=== PATIENT | female | born 1990 | race Caucasian/White ===

== ENCOUNTER 2018-08-24 09:59 | Day surgery (SDC) | payer MEDICAID, SELFPAY ==
--- NOTE | 2018-08-24 | NASAL_PTH ---
PATIENT: LADARIUS PARRISH LOC: [facility] [place] U#:[id number] AGE/SX: 28/F ROOM: RE08/24/[address]: Dean Moreno MD : 1990 BED: DIS: 08/24/2018 SPEC #: [id number] RECD: 08/24/18 14:31 STATUS: XANDER PATRICIA #: [id number] ALBERTO: 08/24/18 00:[address]: Dean Moreno DEPT: SURGICAL PATHOLOGY RECD BY: Issa Pace ENTERED: 08/24/18 14:31 SP TYPE: NASAL SPEC OTHR DR: Marcia Walters, MOTOR BRAKEMAN-C Tissues: Nasal septum, NOS Procedures: Decalcification bone/plaque Surgery Specimen Level III HEADER OPERATION: Septoplasty, turbinate cautery PRE-OP DIAGNOSIS: Nasal congestion, deviated nasal septum, hypertrophy of nasal turbinate TISSUE SUBMITTED: Nasal septum and cartilage MICROSCOPIC DIAGNOSIS Nasal septum and cartilage, septoplasty: Fragments of hyaline cartilage and bone with reparative and reactive change (clinically deviated septum). AM:tamera 08/30/18 MICROSCOPIC DESCRIPTION Slides are reviewed. GROSS DESCRIPTION Received in fixative is one container labeled with the patient's name and designated nasal septum and cartilage. The specimen consists of multiple fragments of cartilage and bone that in aggregate measure 4 x 3 x 0.8 cm. Health Informatics Advisor tissue is submitted in one cassette after decalcification. / SJ:tamera 08/24/18 TC:5 CPT: 47071, 57118
[2018-08-24 10:32] VITALS: BP 102/62; PULSE 70; RESP 16; TEMP 37; O2SAT 100; BMI 24.3
[2018-08-24 10:35] LABS: Internal QC Validated? YES +Cl - CLEAR BKGD; Pregnancy, Urine Negative Negative
[2018-08-24] MEDS: Mixture 30 ML Bottle TOPICAL (12:02)
[2018-08-24] MEDS: Oxymetazoline 0.05% 1 SPRAY SPRAY.BTL 15 SPRAY (12:10)
[2018-08-24] MEDS: Neomycin/Bacitracin/Polymyxin Ointment 1 APPLIC (12:50)
--- NOTE | 2018-08-24 13:15 | PCM.DC ---
You will use the following diet at home:: No restrictions Discharge Activity: Return to Normal Activity - head of bed elevation. Do not blow nose but spray saline and sniff clear at least 3 times daily and as desired Allergies/Adverse Reactions: Allergies oseltamivir [From Tamiflu] Allergy (Verified 08/24/18 10:30) Rash Medications to take at Discharge Escitalopram Oxalate [Lexapro] 10 mg PO DAILY 08/17/18 Fluticasone 0.05% [Flonase Nasal [place]] 2 spray NASAL DAILY 08/17/18 Hydroxyzine Pamoate [Vistaril] 50 mg PO BID PRN PRN 08/17/18 Primary Care Physician: Marcia Walters NP-C [Primary Care Provider] - Test Results: Test results from this visit will be discussed in further detail at your follow-up appointment, if applicable. Please Follow Up With: Dean Moreno MD - follow up on 09-05-18
--- NOTE | 2018-08-24 13:19 | DCINST_ITS ---
You will use the following diet at home:: No restrictions Discharge Activity: Return to Normal Activity - head of bed elevation. Do not b low nose but spray saline and sniff clear at least 3 times daily and as desired Allergies/Adverse Reactions: Allergies oseltamivir [From Tamiflu] Allergy (Verified 08/24/18 10:30) Rash Medications to take at Discharge Escitalopram Oxalate [Lexapro] 10 mg PO DAILY 08/17/18 Fluticasone 0.05% [Flonase Nasal [place]] 2 spray NASAL DAILY 08/17/18 Hydroxyzine Pamoate [Vistaril] 50 mg PO BID PRN PRN 08/17/18 Primary Care Physician: Marcia Walters NP-C [Primary Care Provider] - Test Results: Test results from this visit will be discussed in further detail at your follow- up appointment, if applicable. Please Follow Up With: Dean Moreno MD - follow up on 09-05-18
[2018-08-24 13:24] VITALS: BP 102/62; BP 118/84; PULSE 83; RESP 18; TEMP 36.8; O2SAT 97
[2018-08-24 13:30] VITALS: BP 102/62; BP 111/75; PULSE 76; RESP 18; O2SAT 96
[2018-08-24 13:38] VITALS: BP 102/62; BP 115/79; PULSE 77; RESP 18; TEMP 36.5; O2SAT 98
[2018-08-24] MEDS: HYDROcodone Bitartrate/Apap 5/325 Tablet PO (14:14)
--- NOTE | 2018-08-24 14:17 | PCM.OPRPT ---
Report of Operation Date of Procedure: 08/24/18 Pre-Operative Diagnosis: Nasal airway obstruction, septal deformity, turbinate hypertrophy Post-Operative Diagnosis: Same Surgery/Procedure Performed:: Nasal septoplasty, therapeutic outfracture of inferior turbinates with subsequent intramural cautery using Parrish bipolar probe Anesthesiologist: Souleymane Sandoval - General endotracheal, Lazara Burt CRNA Specimen's removed: Septal cartilage and bone fragments Estimated Blood Loss (mL): 30 ml Description of Procedure: The patient was transported to the operating room and placed on the OR table in the supine position. After the administration of adequate general endotracheal anesthesia the patient was appropriately positioned, eyes were treated, and taped closed. A head drape was applied but the eye young were not covered. The nasal cavity was inspected. The nasal septum had been displaced into the left nasal chamber secondary to remote trauma. There was virtually no airway on the left side. The right inferior turbinate was markedly hypertrophic and filled the available space on that side. Oxymetazoline spray was instilled in the into the nasal chamber and this brought about vasoconstriction of turbinate tissues. Reexamination resulted in the same impression. There was a huge concave crease down the right side of the septum and a very prominent convexity, or spur formation, along the left side. In fact, the left inferior turbinate was wrapped around this posterior septal spur. The inferior turbinate had a concave groove along its surface from the mid region posteriorly. Cottonoid pledgets soaked in Will-Synephrine Xylocaine were placed into the nasal chamber to bring about further vasoconstriction. 1% Xylocaine with epinephrine 1-100,000 was then used to infiltrate the columellar area of the septum and used to elevate the soft tissues off of the convex side of the septum on the left side, as well as along the region of the concave crease on the right. Pledgets were subsequently removed. #15 scalpel was then used to make a right hemitransfixion incision and with Abbie and [place] elevators the soft tissues were elevated from the left side of the quadrangular cartilage as well as the posterior bony ethmoid plate and vomer. An inferior tunnel was also elevated on the right side along the concave crease region. No defect in the right mucoperiosteal flap occurred at any time. A laceration did occur on the left side, posteriorly, when the bony spur was subsequently removed. Having elevated the soft tissues satisfactorily the [place] elevator was used to make an incision at the chondro-osseous junction of the septum to allow full mobilization of the posterior septal mucosal flaps in preparation for removal of the posterior aspect of the septum. This bony portion was taken in fragments after using double-action scissors and forceps for removal. A portion of the vomer and maxillary crest region was excised using a small chisel and mallet. The quadrangular cartilage for the most part was fully preserved anteriorly and mobilized back into the midline. Some FloSeal material was used to coat the posterior portion of the mucoperiosteal flaps where this posterior laceration had occurred. This brought about satisfactory control of any oozing. The hemitransfixion incision was closed with 4-0 chromic. The inferior turbinates were fully lateralized into the inferior meatus with a large [place] elevator. Very little movement was required on the left side. The Zaizher.im bipolar probe was then used to achieve submucosal cautery. The probe was placed into the anterior aspect of the turbinate and current was applied. When blanching was evident the probe was advanced and a submucosal line of cautery was accomplished. The posterior tips received additional cautery with benefit of the 0 degree endoscope for visualization. Lopez airway splints, coated in Neosporin ointment, were then placed into the nasal chamber and secured anteriorly with a single suture of 3-0 Ethilon. A nasal drip pad was applied and the procedure was terminated. The patient tolerated the procedure well, did not sustain any intraoperative anesthetic or surgical complication, was extubated in the operating room and taken to the PACU where she was noted to be in satisfactory condition. Dean Moreno MD
--- NOTE | 2018-08-24 14:30 | OP.PCM_ITS ---
Report of Operation Date of Procedure: 08/24/18 Pre-Operative Diagnosis: Nasal airway obstruction, septal deformity, turbinate hypertrophy Post-Operative Diagnosis: Same Surgery/Procedure Performed:: Nasal septoplasty, therapeutic outfracture of inferior turbinates with subsequent intramural cautery using Parrish bipolar probe Anesthesiologist: Souleymane Sandoval - General endotracheal, Lazara Burt CRNA Specimen's removed: Septal cartilage and bone fragments Estimated Blood Loss (mL): 30 ml Description of Procedure: The patient was transported to the operating room and placed on the OR table in the supine position. After the administration of adequate general endotracheal anesthesia the patient was appropriately positioned, eyes were treated, and taped closed. A head drape was applied but the eye young were not covered. The nasal cavity was inspected. The nasal septum had been displaced into the left nasal chamber secondary to remote trauma. There was virtually no airway on the left side. The right inferior turbinate was markedly hypertrophic and filled the available space on that side. Oxymetazoline spray was instilled in the into the nasal chamber and this brought about vasoconstriction of turbinate tissues. Reexamination resulted in the same impression. There was a huge concave crease down the right side of the septum and a very prominent convexity, or spur formation, along the left side. In fact, the left inferior turbinate was wrapped around this posterior septal spur. The inferior turbinate had a concave groove along its surface from the mid region posteriorly. Cottonoid pledgets soaked in Will-Synephrine Xylocaine were placed into the nasal chamber to bring about further vasoconstriction. 1% Xylocaine with epinephrine 1-100 ,000 was then used to infiltrate the columellar area of the septum and used to elevate the soft tissues off of the convex side of the septum on the left side, as well as along the region of the concave crease on the right. Pledgets were subsequently removed. #15 scalpel was then used to make a right hemitransfixion incision and with Graves and Mathis elevators the soft tissues were elevated from the left side of the quadrangular cartilage as well as the posterior bony ethmoid plate and vomer. An inferior tunnel was also elevated on the right side along the concave crease region. No defect in the right mucoperiosteal flap occurred at any time. A laceration did occur on the left side, posteriorly, when the bony spur was subsequently removed. Having elevated the soft tissues satisfactorily the Mathis elevator was used to make an incision at the chondro- osseous junction of the septum to allow full mobilization of the posterior septal mucosal flaps in preparation for removal of the posterior aspect of the septum. This bony portion was taken in fragments after using double-action scissors and forceps for removal. A portion of the vomer and maxillary crest region was excised using a small chisel and mallet. The quadrangular cartilage for the most part was fully preserved anteriorly and mobilized back into the midline. Some FloSeal material was used to coat the posterior portion of the mucoperiosteal flaps where this posterior laceration had occurred. This brought about satisfactory control of any oozing. The hemitransfixion incision was closed with 4-0 chromic. The inferior turbinates were fully lateralized into the inferior meatus with a large Mathis elevator. Very little movement was required on the left side. The ZapHour bipolar probe was then used to achieve submucosal cautery. The probe was placed into the anterior aspect of the turbinate and current was applied. When blanching was evident the probe was advanced and a submucosal line of cautery was accomplished. The posterior tips received additional cautery with benefit of the 0 degree endoscope for visualization. Lopez airway splints, coated in Neosporin ointment, were then placed into the nasal chamber and secured anteriorly with a single suture of 3-0 Ethilon. A nasal drip pad was applied and the procedure was terminated. The patient tolerated the procedure well, did not sustain any intraoperative anesthetic or surgical complication, was extubated in the operating room and taken to the PACU where she was noted to be in satisfactory condition. Dean Moreno MD
[2018-08-24 14:50] VITALS: BP 102/62; BP 122/81; PULSE 84; RESP 18; TEMP 36.8; O2SAT 99
== END 2018-08-24 14:52 | disposition home or self-care (01) ==
LOC: SDC 09:59 → AC 10:01
PROVIDERS: Anesthesiology; Family Provider Nurse Practitioner Family; PCP Nurse Practitioner Family; Referring Provider Otolaryngology Otolaryngology/Facial Plastic Surgery; Visit Provider Otolaryngology Otolaryngology/Facial Plastic Surgery
PROC: (CPT 30520; principal; 2018-08-24 11:25)
DX: J34.2 Deviated nasal septum (principal); R09.81 Nasal congestion; J34.3 Hypertrophy of nasal turbinates; F32.9 Major depressive disorder, single episode, unspecified; F17.200 Nicotine dependence, unspecified, uncomplicated; Z79.899 Other long term (current) drug therapy
CPT/HCPCS: 30520; 30930; 81025; 88304; 88311; J7120; J2405

== ENCOUNTER → 2019-08-02 13:41 | Outpatient (CLI) | payer MEDICAID, SELFPAY ==
[2019-07-23 10:08] VITALS: BMI 24.3
--- NOTE | 2019-08-02 13:42 | CT_ITS ---
STUDY: CT ABDOMEN WITHOUT CONTRAST REASON FOR EXAM: Female, 29 years old. Umbilical pain, lump to the right of umbilicus, prior hernia x 2, last hernia repair 1 year ago. RADIATION DOSAGE (If Supplied By Facility): CTDIvol = ( 7.84 ) mGy, DLP = ( 267.13 ) mGycm TECHNIQUE: Transaxial images were obtained without intravenous contrast, and without oral contrast. Sagittal and coronal images were reconstructed. Individualized dose optimization techniques were used for this CT. COMPARISON: None. FINDINGS: The visualized lung bases are unremarkable. The visualized portions of the heart are within normal limits. Normal liver. Normal gallbladder and extrahepatic biliary system. Normal spleen. Normal pancreas. Normal bilateral adrenal glands. Normal right kidney. Normal left kidney. Normal visualized stomach. Normal small intestine. Fecal retention in the colon. The visualized appendix is normal. Normal abdominal aorta. Normal inferior vena cava. Normal retroperitoneum. Mild fatty density at the umbilicus. Small fatty umbilical hernia cannot be excluded. Normal osseous structures. CT/Abdomen without IV Contrast IMPRESSION: Colonic fecal retention. No sign of obstruction. Possible small fatty umbilical hernia. Electronically Signed: Erik Mccartney DO at 23:23 EST Tel [phone], Service support ,
== END ==
PROVIDERS: PCP Nurse Practitioner Family; Referring Provider Surgery; Visit Provider Surgery
DX: R10.33 Periumbilical pain (principal)
CPT/HCPCS: 74150

== ENCOUNTER 2019-10-19 07:41 | Day surgery (SDC) | payer MEDICAID, SELFPAY ==
[2019-08-15 14:24] VITALS: BMI 24.3
--- NOTE | 2019-08-16 12:12 | HP_ITS ---
Intake Vital Signs 08/15/19 BMI 24.3 Intake Visit Reasons: F/U HERNIA CT 08/02 Chief Complaint: discuss CT Jet Inspector Required: No Is patient in pain?: No Allergies oseltamivir [From Tamiflu] Allergy (Verified 07/23/19 10:07) Rash Is last menstrual period known: No Post menopausal: No Patient : No PFSH Medical History Asthma (Acute) Constipation (Acute) Depression with anxiety (Acute) Hemorrhoids (Acute) Surgical History H/O umbilical hernia repair (Acute) History of nasal septoplasty (Acute) Family History Mother Hypertension Father Hypertension Uncle Colon cancer Social History (Updated 08/16/19 @ 12:[address] Annel South MD) Smoking Status: Current every day smoker alcohol intake: current alcohol intake frequency: a few times a month substance use type: does not use HPI HPI HPI: LADARIUS PARRISH, is a 29 F who presents to the office today for HPI HPI Surgical H&P: Yes HPI: LADARIUS PARRISH, is a 29 F who presents to the office today for follow-up from CT abdomen pelvis as well as for hemorrhoids. Patient states she still has discomfort in her abdomen especially when she is moving around rates at about a 7/10 currently she rates it about a 2/10. Patient did increase her fiber and her constipation is improved and also the suppositories did help with her hemorrhoids as well. CT abdomen pelvis did show a small umbilical hernia looks to go around the mesh on the right. ROS General General: No weight change, fatigue, colon cancer, breast cancer or weakness HEENT HEENT: No difficulty swallowing, eye injury, eye surgery, swollen glands or hoarseness Endo Endocrine: No thyroid disease, diabetes mellitus, thyroid cancer, Hair loss, heat intolerance or cold intolerance Skin Skin: No rash or changing moles Breast Breast: No left breast lump, right breast lump, nipple discharge, breast pain, abnormal mammogram, abnormal US or breast enlargement Musc Musculoskeletal: No back problems, arthritis, rheumatoid arthritis, gout or joint pain Cardio Cardiovascular: No murmur, pacemaker, heart disease, atrial fibrillation, high blood pressure, heart attack, heart stent, palpitations, shortness of breat with exertion or chest pain Psych Psychiatric: Yes depression and anxiety; no hearing voices Resp Respiratory: No shortness of breath, No sleep apnea, No cough, No COPD, Yes asthma, No emphysema, No wheezing Gastro Gastrointestinal: No abdominal pain, No nausea or vomiting, No diarrhea, Yes constipation, No blood in stool, No acid reflux, Yes hemorrhoids, No ulcers, No gallbladder problem, No black,tarry stools Ryan Hematologic: No blood thinners, No blood disorders, No bleeding, No anemia, No blood clots Neuro Neurologic: No weakness Exam Const General: cooperative, comfortable, no acute distress Chest Breast Palpation: No nipple discharge Resp Effort & Inspection: normal respiratory effort Cardio Rate: regular rate Heart Sounds: no murmurs GI Inspection: non-distended Palpation: soft, no guarding, hernia (Unable to feel the obvious defect at it is quite small on CT), tender (Umbilicus/right of umbilicus) Assessment & Plan Problems 1. Recurrent ventral incisional hernia K43.2 2. History of umbilical hernia repair Z98.890; Z8719 07/25- primary repair, 09/22- redo with mesh Plan Discussed with patient would plan to do an open ventral hernia repair with removal of mesh then conversion to laparoscopic with placement of mesh. Discussed with patient procedure including but not limited to risk of bleeding, infection, injury to another organ, recurrent hernia, patient had no further questions this time. Was agreeable to proceed with repair. Annel South M.D. Pager: [phone] [facility] [address] [place] [address], [address] [place] [address] Office: [phone] Plan Detail Follow Up Patient will schedule surgery. Coding Level of Care Code Off vis,est,level 3 Diagnoses Recurrent ventral incisional hernia K43.2 History of umbilical hernia repair Z98.890; Z87.19 08/16/19 1215 <Electronically signed by Annel Raphael am, MD> Date _ Annel South MD
[2019-10-19] VITALS (7 sets, daily range): BP systolic 100–133; BP diastolic 59–92; PULSE 72–91; RESP 15–18; TEMP 36.1–36.6; O2SAT 93–100; BMI 25.9
[2019-10-19 08:02] LABS: Internal QC Validated? YES +Cl - CLEAR BKGD
[2019-10-19 08:05] LABS: Pregnancy, Urine Negative Negative
[2019-10-19] MEDS: Lactated Ringers 1,000 ML 100 ML IV (08:15)
--- NOTE | 2019-10-19 08:19 | HP.PCM_ITS ---
History of Present Illness Date of Admission: 10/19/19 The patient is a 29 year old F presents due to recurrent recurrent incisional hernia. Patient previously did have a suture repair and then a mesh repair and CT did show evidence of hernia going on the right side of the mesh. Patient states she does still have discomfort in her abdomen at this area. Patient states her constipation is improved still having some issues with her hemorrhoids sore with wiping. Past Medical History Past Medical History (Chronic Problems): Chronic Problems (Last Reviewed 08/15/19 @ 14:23 by Theresa Moran) History of umbilical hernia repair (Chronic) 07/25- primary repair, 09/22- redo with mesh Medical History: Medical History (Last Reviewed 08/15/19 @ 14:23 by Theresa Moran) Asthma J45.909 Constipation K59.00 Depression with anxiety F41.8 Hemorrhoids K64.9 Allergies oseltamivir [From Tamiflu] Allergy (Verified 10/19/19 08:02) Rash Home Medications: Ambulatory Orders Medication Instructions Recorded Hydroxyzine Pamoate [Vistaril] 50 mg PO BID PRN PRN 08/17/18 Escitalopram Oxalate [Lexapro] 10 mg PO DAILY 10/15/19 Lactobacillus Acidophilus 1 ea PO DAILY 10/15/19 [Probiotic Acidophilus] Multivitamin [Daily Multiple 1 ea PO DAILY 10/15/19 Vitamin] Surgical History: Surgical History (Last Reviewed 08/15/19 @ 14:23 by Theresa Moran) H/O umbilical hernia repair Z98.890, Z87.19 History of nasal septoplasty Z98.890 Smoking Status: Current every day smoker Tobacco Use: Cigarettes VTE Information - Inpt Only VTE Present on Admission: Yes VTE Mechan Device Prophylaxis: SCD's - Physical Exam Vitals/I&O's: Vital Signs Temp Pulse Resp BP Pulse Ox 97.8 F 72 15 133/79 H 99 10/19/19 08:07 10/19/19 08:07 10/19/19 08:07 10/19/19 08:07 10/19/19 08:07 Oxygen Delivery Method Room Air Weight: 160 lb 11.472 oz Body Mass Index (BMI) 25.9 General: Alert, Oriented x3, Cooperative, No apparent distress, Well developed HEENT: Atraumatic Lungs: Normal air movement Cardiovascular: Regular rate Abdomen: Soft, Non-Distended, Tender - Mildly of trying to press on recurrent hernia, - - No peritoneal signs, previous incision well-healed Extremities: No clubbing, No cyanosis, No edema Neurological: Cranial nerves II-XII grossly intact Psych/Mental Status: Normal Affect Microbiology Past 72 Hours 10/18/19 11:56 Mucosa - Nasopharyngeal Coronavirus COVID-19 PCR - Final Laboratory Results 10/18/19 11:56: COVID-19 ([facility]) Cancelled 10/19/19 07:55: Urine Test Negative Current Medications Lactated Ringer's () 1,000 mls @ 100 mls/hr IV .Q10H SVEN Last Admin: 10/19/19 08:15 Dose: 100 mls/hr Documented by: Assessment/Plan 29-year-old female with recurrent?recurrent incisional hernia with mesh for removal and replacement of mesh Discussed patient will plan to remove the mesh with an open repair and place mesh laparoscopically. Discussed procedure including risk but not limited to bleeding, infection, pain, injury to another organ, and etc. Patient no further questions this time and agreed to proceed. We discussed the current risks associated with COVID-19. While it is understood that there is a community spread of COVID-19, the risk of nirali COVID-19 while at [facility] ([facility]) is very low; however, the risk cannot be completely mitigated because of the community spread of the disease. We discussed in detail the risk of exposure to and/or potential harm posed by the COVID-19 virus with having a surgery/procedure at this time versus the risk of delaying the surgery/procedure. It is not possible to know either the risk of delaying the surgery or procedure or chance of getting an infection with perfect accuracy, but a joint decision was made to proceed at this time with the scheduled surgery/procedure as indicated on the consent form. Patient was notified that we will need to comply with any screening or testing [facility] wishes to perform or that surgery may be delayed for any positive results. Annel South M.D. Pager: [phone] [facility] [address] [place] [address], [address] [place] [address] Office: [phone]
[2019-10-19] MEDS: Cefazolin 2 GM in 0.9% Normal Saline 100 ML IV (08:57)
--- NOTE | 2019-10-19 09:15 | HERN_PTH ---
PATIENT: LADARIUS PARRISH LOC: [facility] [place] U#:[id number] AGE/SX: 29/F ROOM: RE10/19/[address]: Dr. Annel South MD : 1990 BED: DIS: 10/19/2019 SPEC #: [id number] RECD: 10/19/19 12:54 STATUS: XANDER PATRICIA #: [id number] ALBERTO: 10/19/19 09:[address]: Annel South DEPT: SURGICAL PATHOLOGY RECD BY: Brandon Bishop ENTERED: 10/22/19 11:35 SP TYPE: Hernia OTHR DR: Marcia Walters, CORROSION CONTROL SPECIALIST-C Tissues: HERNIA Procedures: Surgery Specimen Level III HEADER OPERATION: Open recurrent hernia, ventral/incision repair with mesh removal PRE-OP DIAGNOSIS: Recurrent incisional hernia TISSUE SUBMITTED: Hernia mesh MICROSCOPIC DIAGNOSIS Hernia mesh: A piece of mesh with attached mature adipose tissue, clinically recurrent incisional hernia. SJ:tamera 10/23/19 MICROSCOPIC DESCRIPTION Slides are reviewed. GROSS DESCRIPTION Received in fixative is one container labeled with the patient's name and designated hernia mesh. The specimen consists of a piece of mesh with attached tissue. The mesh measures 4 cm in diameter and 0.1 cm in thickness. The attached ring-shaped tissue measures 3 cm in diameter. The small piece of adipose tissue is removed from mesh and submitted in one cassette. Mesh is for gross identification only. / LIZZETH:tamera 10/22/19 TC:5 [facility]: [id number]
--- NOTE | 2019-10-19 10:32 | OP.PCM_ITS ---
Report of Operation Date of Procedure: 10/19/19 Pre-Operative Diagnosis: Recurrent recurrent incisional/ventral hernia Post-Operative Diagnosis: Same Surgery/Procedure Performed:: Recurrent recurrent ventral hernia repair with removal of mesh and laparoscopically placement of new mesh kitchen utility associate: Reymundo Barraza Type of Anesthesia:: General/Supplemental Anesthesiologist: Bird Marmolejo Special Medications: Ancef 2 g IV x1 Specimen's removed: Old mesh Estimated Blood Loss (mL): < 10 cc Fluids Replaced: 1400 cc Description of Procedure: Indications this is a 29 year-old male who had a symptomatic recurrent recurrent incisional/ventral hernia. Laparoscopic ventral hernia repair with removal and replacement of mesh was elected. Description procedure: The patient was placed on operating table in supine position. General anesthesia was induced. A timeout was completed verifying correct patient, procedure, site, position, social, and special equipment prior to beginning procedure. Both arms were tucked and appropriately padded. The abdomen was prepped and draped in usual sterile fashion. The previous epigastric midline incision was re-incised with a 15 blade scalpel. This was deepened to the fascia. The mesh was sharply dissected and removed?sent to [facility]. Entry into the peritoneum was confirmed visually and no bowel was noted in the vicinity of the incision. 2-0 Prolene [id number] were placed to close the fascia of the hernia defect, prior to closing the Rico trocar was placed. The abdomen was insufflated with carbon dioxide to a pressure of 12-15 mmHg. Patient tolerated insufflation well. The laparoscope was then inserted and abdomen inspected. No injuries from initial trocar placement were noted. Additional trochars were then inserted in the following locations 5 mm trocar in the left lateral abdomen and right lower quadrant. The abdomen was inspected no abnormalities were found. The Ventral light ST mesh (lot [id number] ref [id number]) was chosen for repair-11.4 cm in diameter. Mesh was rolled into a cylinder in place through the Rico trocar. The inflation tubing was grasped with a suture passer in the middle of the hernia defect and pulled up against the abdominal wall. The balloon was deployed and the mesh was laying flat against the abdominal wall. The 0 Prolene placed previously were secured to close the hernia defect after lit trocar removed. The securestrap was used to secure the mesh in place. The balloon deployment system was removed from the mesh and the abdomen. The mesh was further secured in place. Secondary trochars removed under direct vision. No bleeding was noted the trocar sites. The laparoscope was withdrawn and umbilical trocar removed. The abdomen was allowed to collapse. The skin was closed with sutures of 4-0 Monocryl and Steri-Strips. The patient was extubated. The patient tolerated procedure well and was taken to the postanesthesia care unit in stable condition. Grafts/Implants Used: Ventralight ST mesh lot [id number] ref [id number] - Complications none
[2019-10-19] MEDS: Bupivacaine Mpf 0.5% 30 ML VIAL (10:40)
--- NOTE | 2019-10-19 10:40 | PCM.DC.GS ---
Discharge Diet: Light diet - advance as tolerated Discharge Activity: May not drive while taking narcotic pain medications. May shower in (days): 1 Lifting Restrictions: No lifting greater than 20 pounds x 2 weeks Call your doctor if your incision/area has: Continuous Slow Oozing, Sudden Increased Bleeding, Increased Pain/ Swelling, Increased Redness, Foul Smelling Discharge, Swelling at the incision site Call your doctor if you observe: Fever of 101 or Higher Remove Dressing in (days):: 2 - Okay to remove midline OpSite in 2 days to remove the side ones tomorrow Steri-Strips will stay on for 7 to 10 days. Allergies/Adverse Reactions: Allergies oseltamivir [From Tamiflu] Allergy (Verified 10/19/19 08:02) Rash Medications to take at Discharge Hydroxyzine Pamoate [Vistaril] 50 mg PO BID PRN PRN 08/17/18 Escitalopram Oxalate [Lexapro] 10 mg PO DAILY 10/15/19 Lactobacillus Acidophilus [Probiotic Acidophilus] 1 ea PO DAILY 10/15/19 Multivitamin [Daily Multiple Vitamin] 1 ea PO DAILY 10/15/19 Oxycodone HCl/Acetaminophen [Percocet 5/325] 1 - 2 tab PO Q6H PRN PRN 5 Days #25 tab 10/19/19 hydrocortisone See Rx Instructions .ROUTE .MEDSUPPLY #30 supp 10/19/19 The following prescriptions were given: Oxycodone HCl/Acetaminophen [Percocet 5/325] 1 - 2 tab PO Q6H PRN PRN 5 Days #25 tab PRN Reason: Pain Transmission Status: Received by [facility] Primary Care Physician: Marcia Walters NP-C [Primary Care Provider] - Test Results: Test results from this visit will be discussed in further detail at your follow-up appointment, if applicable. Please Follow Up With: Annel South MD - After 5 PM and on the weekends call [phone] with any concerns When: Call the office for a f/u appt in 2 weeks Proposed Discharge Date: 10/19/19
== END 2019-10-19 12:38 | disposition home or self-care (01) ==
LOC: SDC 07:42 → AC 07:43
PROVIDERS: Anesthesiology; PCP Nurse Practitioner Family; Referring Provider Surgery; Visit Provider Surgery
PROC: (CPT 49656; principal; 2019-10-19 09:00)
DX: K43.2 Incisional hernia without obstruction or gangrene (principal); F32.9 Major depressive disorder, single episode, unspecified; F41.9 Anxiety disorder, unspecified; F17.210 Nicotine dependence, cigarettes, uncomplicated; Z11.59 Encounter for screening for other viral diseases
CPT/HCPCS: 49656; 81025; 87635; 88302; 88304; G2023; J7120; J0330; J2405; U0002

== ENCOUNTER 2019-12-18 10:29 | Day surgery (SDC) | payer MEDICAID, SELFPAY ==
--- NOTE | 2019-11-12 02:07 | HP_ITS ---
Intake Intake Visit Reasons: Hernia Surgery 10/25 Chief Complaint: discuss CT Crushing Machine Operator Required: No Is patient in pain?: Yes (Rectum pain on and off) Allergies oseltamivir [From Tamiflu] Allergy (Verified 10/19/19 08:02) Rash Medications Hydroxyzine Pamoate [Vistaril] 50 mg PO BID PRN PRN 08/17/18 [History Confirmed 11/12/19] Escitalopram Oxalate [Lexapro] 10 mg PO DAILY 10/15/19 [History Confirmed 11/12/19] Lactobacillus Acidophilus [Probiotic Acidophilus] 1 ea PO DAILY 10/15/19 [History Confirmed 11/12/19] Multivitamin [Daily Multiple Vitamin] 1 ea PO DAILY 10/15/19 [History Confirmed 11/12/19] hydrocortisone See Rx Instructions .ROUTE .MEDSUPPLY #30 supp 10/19/19 [Rx Confirmed 11/12/19] Docusate Sodium [Dulcolax Stool Softener] 100 mg PO BID PRN PRN #30 cap 10/20/19 [Rx Confirmed 11/12/19] Ibuprofen 200 - 600 mg PO Q6H PRN PRN #30 tab 10/20/19 [Rx Confirmed 11/12/19] acetaminophen 325 mg tablet See Rx Instructions PO Q6H PRN #60 tab 10/24/19 [Rx Confirmed 11/12/19] ibuprofen 200 mg capsule See Rx Instructions PO Q6H PRN #60 cap 10/24/19 [Rx Confirmed 11/12/19] Date _ Annel South MD
[2019-11-12 14:00] VITALS: BMI 27.6
--- NOTE | 2019-12-18 10:40 | HP.PCM_ITS ---
History of Present Illness Date of Admission: 12/18/19 The patient is a 29 year old F presents for hemorrhoidectomy/exam under anesthesia. Patient states her hemorrhoids are still bothersome she is having bowel movements daily which are soft and also been drinking plenty water. Past Medical History Past Medical History (Chronic Problems): Chronic Problems (Last Updated 11/12/19 @ 13:37 by Michelle Cuba) History of umbilical hernia repair (Chronic) 07/25- primary repair, 09/22- redo with mesh Medical History: Medical History (Last Reviewed 11/12/19 @ 13:37 by Michelle Cuba) Asthma J45.909 Constipation K59.00 Depression with anxiety F41.8 Hemorrhoids K64.9 Allergies oseltamivir [From Tamiflu] Allergy (Verified 12/10/19 16:08) Rash Home Medications: Ambulatory Orders Medication Instructions Recorded Hydroxyzine Pamoate [Vistaril] 50 mg PO BID PRN PRN 08/17/18 Escitalopram Oxalate [Lexapro] 10 mg PO DAILY 10/15/19 Multivitamin [Daily Multiple 1 ea PO DAILY 10/15/19 Vitamin] hydrocortisone See Rx Instructions .ROUTE 10/19/19 .MEDSUPPLY #30 supp albuterol sulfate 90 mcg/actuation 1 puff INHALATION Q4H PRN PRN 11/12/19 aerosol inhaler mupirocin 2 % topical ointment 1 g TOPICAL PRN PRN 11/12/19 trazodone 100 mg tablet 100 mg PO QHS PRN tab 11/12/19 docusate sodium 100 mg capsule 100 mg PO DAILY #30 cap 11/19/19 lidocaine 5 % topical ointment 1 applic TOPICAL TID PRN #30 g 11/19/19 Surgical History: Surgical History (Last Updated 11/12/19 @ 13:37 by Michelle Cuba) H/O umbilical hernia repair Z98.890, Z87.19 10/19/2019 History of nasal septoplasty Z98.890 Smoking Status: Current every day smoker Tobacco Use: Cigarettes - *Family History Maternal Family History: Family History (Last Reviewed 11/12/19 @ 13:37 by Michelle Cuba) Mother Hypertension Father Hypertension Uncle Colon cancer History Items: No pertinent history VTE Information - Inpt Only VTE Present on Admission: Yes VTE Mechan Device Prophylaxis: SCD's - Physical Exam Vitals/I&O's: Body Mass Index (BMI) 27.6 General: Alert, Oriented x3, Cooperative, No apparent distress HEENT: Atraumatic Lungs: Normal air movement Cardiovascular: Regular rate Abdomen: Soft, Non Tender, Non-Distended, - - KRISTAL deferred Extremities: No clubbing, No cyanosis, No edema Neurological: Cranial nerves II-XII grossly intact Psych/Mental Status: Normal Affect Assessment/Plan All Active Problems (Last Updated 11/12/19 @ 13:37 by Michelle Cuba) S/P repair of recurrent ventral hernia (Acute) 29-year-old female with hemorrhoids Discussed the procedure of exam under anesthesia and hemorrhoidectomy. Including risk but not limited to bleeding, infection, stenosis, etc. Did discuss that recovery can be painful for a few weeks. Will recommend stool softener daily, sitz bath's 1-2 a day, lidocaine 5% ointment versus spray during recovery. Patient was agreeable with plan had no further questions this time. Prescriptions were sent in for stool softener and ibuprofen to [facility]. We will also send narcotics after surgery. Annel South M.D. Pager: [phone] [facility] [address] [place] [address], [address] [place] [address] Office: [phone] Procedure Criteria Procedure Type: Elective COVID Risk Discussion: The surgeon/proceduralist and patient have discussed in detail the risk of exposure to and/or potential harm posed by the COVID-19 virus with having a surgery/procedure at this time versus the risk of delaying the surgery/procedure. It is not possible to know either the risk of delaying the surgery or procedure or chance of getting an infection with perfect accuracy, but a joint decision was made between the patient and the surgeon/proceduralist to proceed at this time with the scheduled surgery/procedure as indicated on the consent form.
[2019-12-18 10:56] LABS: Internal QC Validated? YES +Cl - CLEAR BKGD
[2019-12-18 10:59] LABS: Pregnancy, Urine Negative Negative
[2019-12-18 11:14] VITALS: BP 125/71; PULSE 75; RESP 16; TEMP 36.7; O2SAT 98; BMI 26.2
[2019-12-18] MEDS: Lactated Ringers 1,000 ML 100 ML IV ×2 (11:22→13:40)
--- NOTE | 2019-12-18 12:00 | HEM_PTH ---
PATIENT: LADARIUS PARRISH LOC: [facility] U#:[id number] AGE/SX: 29/F ROOM: RE12/18/[address]: Dr. Annel South MD : [id number] BED: DIS: 12/18/2019 SPEC #: [id number] RECD: 12/18/19 14:32 STATUS: XANDER PATRICIA #: [id number] ALBERTO: 12/18/19 12:[address]: Annel South DEPT: SURGICAL PATHOLOGY RECD BY: Geoffrey Cerda ENTERED: 12/19/19 11:07 SP TYPE: HEMORRHOID OTHR DR: Marcia Walters, ENVIRONMENTAL DIRECTOR-C Tissues: HEMORRHOIDS Procedures: Surgery Specimen Level III HEADER OPERATION: EUA, hemorrhoidectomy PRE-OP DIAGNOSIS: Hemorrhoids TISSUE SUBMITTED: Hemorrhoids MICROSCOPIC DIAGNOSIS Hemorrhoids, hemorrhoidectomy: Submucosal vascular ectasia and thrombosis consistent with hemorrhoids. AM:tamera 7/16/20 MICROSCOPIC DESCRIPTION Slides are reviewed. GROSS DESCRIPTION Received in fixative is one container labeled with the patient's name and designated hemorrhoids. The specimen consists of three variable sized pieces of peterson mucosal tissue measuring in aggregate 3 x 2 x 1.5 cm. Sections reveal congested cut surfaces. Assistant Facility Manager sections are submitted in one cassette. / SJ:tamera 12/19/19 TC:5 CPT: 95006
[2019-12-18] MEDS: BUPIVACAINE LIPOSOME/PF 20 ML VIAL OPERA.SITE (12:35)
[2019-12-18] MEDS: Bupiv/Epi 0.5% Mpf 30 ML Vial (12:51)
[2019-12-18] MEDS: Dibucaine 30 GM Tube 1 APPLIC (12:52)
--- NOTE | 2019-12-18 12:54 | PCM.OPRPT ---
Report of Operation Date of Procedure: 12/18/19 Pre-Operative Diagnosis: Internal and external hemorrhoids Post-Operative Diagnosis: Same Surgery/Procedure Performed:: Exam under anesthesia, hemorrhoidectomy search planner: Kitty Curran Type of Anesthesia:: General/Supplemental Anesthesiologist: Bird Marmolejo Special Medications: none Specimen's removed: Hemorrhoid Estimated Blood Loss (mL): 10 cc Fluids Replaced: 700 cc Description of Procedure: The patient was brought into the operating room and general anesthesia was induced. She was placed in prone jackknife lithotomy position. A timeout was completed verifying correct patient, procedure, site, position, and special equipment prior to beginning the procedure. The buttocks were taped apart. Perineum was prepared prepped and draped in standard sterile fashion. Local anesthesia was injected as a perianal nerve block-0.5% Marcaine with epi total of 13 mL and Exparel 20 cc. Anus carefully dilated. Small Hill-Jimenez retractor was introduced and 3 marginal pedicles identified. She was noted to have internal and external hemorrhoids at the left lateral/posterior, external residual tissue anteriorly, no internal hemorrhoids were noted at the right posterior, right anterior positions. The left lateral/posterior pedicle was excised in turn in the following fashion. 0 Vicryl suture was placed at the base of each of the pedicle and retracted externally to exteriorize the hemorrhoidal pedicle. An elliptical incision was made extending from perianal skin to anal rectal ring including both internal and external hemorrhoids and excising a minimal amount of anoderm. Cautery was used to separate the hemorrhoid from the underlying tissue. Careful not to involve any of the sphincter muscle. The pedicle was indicated from the base and sent to pathology. Hemostasis was achieved using electrocautery. Following the hemostasis the skin and mucosal incisions were closed with the running locking stitch of 2-0 chromic. The external residual tissue anteriorly was also excised and sutured with 2-0 chromic. A Surgifoam with dibucaine was placed in the anus. A gauze pad tucked between the gluteal folds. The patient tolerated procedure well and was extubated and taken to the postanesthesia care unit in stable condition. - Complications none
[2019-12-18 13:04] VITALS: BP 125/71; BP 130/67; PULSE 103; RESP 18; TEMP 36.3; O2SAT 97
--- NOTE | 2019-12-18 13:10 | PCM.DC.GS ---
Discharge Diet: Light diet - advance as tolerated, - - High-fiber Discharge Activity: May not drive while taking narcotic pain medications. May shower in (days): 1 Lifting Restrictions: No lifting greater than 20 pounds x 2 to 3 weeks Call your doctor if your incision/area has: Continuous Slow Oozing, Sudden Increased Bleeding, Increased Pain/ Swelling, Increased Redness, Foul Smelling Discharge, Swelling at the incision site Call your doctor if you observe: Fever of 101 or Higher Additional Instructions: Local anesthesia was used if pain gets worse after 48 to 72 hours this medication may have wore off. Okay to take ibuprofen 400-600 mg PO q6hr PRN along with the hydrocodone/acetaminophen. Avoid Tylenol since there is already Tylenol in the hydrocodone/acetaminophen. Take all pain meds with food. Hydrocodone/acetaminophen can cause constipation recommend taking daily stool softener (i.e. Colace/docusate) while taking the pain meds. Recommend starting some (several doses) MiraLAX in 1 to 2 days if no bowel movement. If still no bowel movement the following day recommend taking magnesium citrate half the bottle and waiting 4-6 hours if still no results take the other half the bottle. Allergies/Adverse Reactions: Allergies oseltamivir [From Tamiflu] Allergy (Verified 12/18/19 11:00) Rash Medications to take at Discharge Hydroxyzine Pamoate [Vistaril] 50 mg PO BID PRN PRN 08/17/18 Escitalopram Oxalate [Lexapro] 10 mg PO DAILY 10/15/19 Multivitamin [Daily Multiple Vitamin] 1 ea PO DAILY 10/15/19 hydrocortisone See Rx Instructions .ROUTE .MEDSUPPLY #30 supp 10/19/19 albuterol sulfate 90 mcg/actuation aerosol inhaler 1 puff INHALATION Q4H PRN PRN 11/12/19 mupirocin 2 % topical ointment 1 g TOPICAL PRN PRN 11/12/19 trazodone 100 mg tablet 100 mg PO QHS PRN tab 11/12/19 docusate sodium 100 mg capsule 100 mg PO DAILY #30 cap 11/19/19 lidocaine 5 % topical ointment 1 applic TOPICAL TID PRN #30 g 11/19/19 Hydrocodone Bitart/Apap 5-325 [[place] 5MG-325MG] 1 - 2 tab PO Q6H PRN PRN 6 Days #40 tab 12/18/19 The following prescriptions were given: Hydrocodone Bitart/Apap 5-325 [[place] 5MG-325MG] 1 - 2 tab PO Q6H PRN PRN 6 Days #40 tab PRN Reason: Pain Transmission Status: Received by [id number] Primary Care Physician: Marcia Walters, MALCOLM-C [Primary Care Provider] - Test Results: Test results from this visit will be discussed in further detail at your follow-up appointment, if applicable. Please Follow Up With: Annel South MD - After 5 PM and on the weekends call [phone] with any concerns When: Call the office for follow-up appointment in 3 to 4 weeks phone/virtual Proposed Discharge Date: 12/18/19
[2019-12-18 13:15] VITALS: BP 123/76; BP 125/71; PULSE 90; RESP 18; O2SAT 99
[2019-12-18 13:30] VITALS: BP 117/82; BP 125/71; PULSE 89; RESP 16; O2SAT 97
[2019-12-18 13:45] VITALS: BP 104/69; BP 125/71; PULSE 87; RESP 16; TEMP 36.3; O2SAT 99
[2019-12-18 14:23] VITALS: BP 106/78; BP 125/71; PULSE 68; RESP 16; O2SAT 98
== END 2019-12-18 14:25 | disposition home or self-care (01) ==
LOC: SDC 10:30 → AC 10:48
PROVIDERS: Anesthesiology; PCP Nurse Practitioner Family; Referring Provider Surgery; Visit Provider Surgery
PROC: (CPT 45990; principal; 2019-12-18 11:45)
DX: K64.4 Residual hemorrhoidal skin tags (principal); K64.8 Other hemorrhoids; F32.9 Major depressive disorder, single episode, unspecified; F41.9 Anxiety disorder, unspecified; J45.909 Unspecified asthma, uncomplicated; F17.210 Nicotine dependence, cigarettes, uncomplicated; Z11.59 Encounter for screening for other viral diseases
CPT/HCPCS: 45990; 46260; 81025; 87635; 88304; G2023; J7120; J2405; U0003